=== PATIENT | male | born 1980 | race Caucasian/White ===

== ENCOUNTER 2024-02-27 03:16 | Emergency (ER) | payer MEDICAID, SELFPAY ==
[2024-02-27 03:19] VITALS: BP 148/92; PULSE 71; RESP 18; TEMP 36.7; O2SAT 97; BMI 22.4
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
[2024-02-27 04:09] LABS: Alcohol, Blood (Medical)-Serum < 3.0 mg/dL
[2024-02-27 04:24] LABS: Amphetamine Urine VISTA POSITIVE (<1000 ng/mL); Barbiturate Urine VISTA NEGATIVE (< 200 ng/mL); Benzodiazepine Urine VISTA NEGATIVE (< 200 ng/mL); Cocaine Urine VISTA NEGATIVE (< 300 ng/mL); Ecstacy Urine VISTA NEGATIVE (< 500 ng/mL); Methadone Urine VISTA NEGATIVE (< 300 ng/mL); PCP Urine VISTA NEGATIVE (< 25 ng/mL); THC Urine VISTA NEGATIVE (< 50 ng/mL); Vista UDS pH Range 7
== END 2024-02-27 05:30 | disposition home or self-care (01) ==
PROVIDERS: Emergency Provider Emergency Medicine; Visit Provider Emergency Medicine
DX: R53.83 Other fatigue (principal); B20 Human immunodeficiency virus [HIV] disease; F10.90 Alcohol use, unspecified, uncomplicated; F17.210 Nicotine dependence, cigarettes, uncomplicated
CPT/HCPCS: 80307; 82077; 99282